=== PATIENT | male | born 1955 | race Caucasian/White ===

== ENCOUNTER 2019-04-30 05:54 | Day surgery (SDC) | payer OTHER ==
[~2019-04-30] VITALS: Ht 167.6 cm; Wt 56.2 kg
[2019-04-30 07:17] VITALS: Ht 167.6 cm; Wt 56.2 kg
[2019-04-30 07:51] VITALS: BP 124/5; PULSE 66; RESP 20
[2019-04-30] MEDS ORDERED: PROPOFOL 60 ML ONE (08:12)
[2019-04-30 09:07] VITALS: BP 105/68
== END 2019-04-30 10:41 | disposition home or self-care (01) ==
LOC: GIL 05:54
PROVIDERS: ATTEND Internal Medicine Gastroenterology
DX: Z12.11 Encounter for screening for malignant neoplasm of colon (principal); D12.4 Benign neoplasm of descending colon; K64.8 Other hemorrhoids; K64.4 Residual hemorrhoidal skin tags; K21.0 Gastro-esophageal reflux disease with esophagitis; J44.9 Chronic obstructive pulmonary disease, unspecified; F17.200 Nicotine dependence, unspecified, uncomplicated
CPT/HCPCS: 43239; 45380; Z7610; 88305; 88313